=== PATIENT | female | born 1970 | race Caucasian/White ===

== ENCOUNTER 2022-04-29 06:15 | Day surgery (SDC) | payer OTHER ==
[~2022-04-29] VITALS: Ht 290.8 cm; Wt 132.0 kg
[2022-04-29 07:01] VITALS: BP 113/78; PULSE 70; TEMP 96.4
[2022-04-29 08:05] VITALS: BP 125/92; PULSE 71; TEMP 97.6
[2022-04-29 08:15] VITALS: BP 132/87; PULSE 65
[2022-04-29 08:30] VITALS: BP 143/91; PULSE 70
[2022-04-29 08:45] VITALS: BP 134/88; PULSE 74
--- NOTE | 2022-04-29 09:05 | NUR ---
0805 Pt returns from endo procedure via cart and RN assist to [facility] Pl[facility] 2. Pt ambulates from cart to recliner with RN assist. Monitors on and alarms set. Call light within reach. Care continued by this RN. Pt drowsy and answers all questions appropriately. Pt requests juice and muffin. Pt denies any pain or nausea. Pt's present in room. 0815 Pt taking food and drink well. Pt more alert now. No complications noted. 0850 Discharge instructions given to pt and pt's . All questions answered to their satisfaction. Handed to pt are a thank you card and discharge information. 0905 Pt transferred out of the hospital via wheelchair and this RN assist, to private vehicle driven by pt's .
[2022-04-29] MEDS ORDERED: WELLBUTRIN XL150 MG PO (09:44)
[2022-04-29] MEDS ORDERED: PRINIVIL20 MG PO (09:45)
[2022-04-29] MEDS ORDERED: PROTONIX 40MG T40 MG PO (09:45)
[2022-04-29] MEDS ORDERED: VITAMIN B11000 MCG/M IM (09:46)
== END 2022-04-29 09:05 | disposition home or self-care (01) ==
LOC: SDCO 06:15
DX: K21.00 Gastro-esophageal reflux disease with esophagitis, without bleeding (principal); K29.50 Unspecified chronic gastritis without bleeding; E66.09 Other obesity due to excess calories; Z68.41 Body mass index [BMI] 40.0-44.9, adult
CPT/HCPCS: J2704; J7030

== ENCOUNTER 2023-01-02 08:15 | Outpatient (RCR) | payer BC ==
[~2023-01-02 08:15] MED LIST: CELEBREX 200MG200 MG PO; CEPHALEXIN500 M1 PO; FERROUS SU325 MG/TAB PO; PRINIVIL20 MG PO; PROTONIX 40MG T40 MG PO; ULTRAM 50MG TAB50 MG PO; VITAMIN B11000 MCG/M IM; WELLBUTRIN XL150 MG PO
== END 2023-01-13 | disposition home or self-care (01) ==
LOC: WSPT
DX: Z96.651 Presence of right artificial knee joint (principal)